=== PATIENT | female | born 2000 | race Caucasian/White ===

== ENCOUNTER 2021-02-06 16:39 | Emergency (ER) | payer SELFPAY ==
[~2021-02-06] VITALS: Ht 177.8 cm; Wt 63.5 kg
[~2021-02-06 16:39] MED LIST: TYLENOL
[2021-02-06 16:45] VITALS: BP 126/72
--- NOTE | 2021-02-06 16:50 | NUR ---
KIMBERLY. HANDED ON URINE CUP.
--- NOTE | 2021-02-06 17:19 | NUR ---
PATIENT AMBULATED TO BED 2.
--- NOTE | 2021-02-06 17:50 | NUR ---
20 Y/O FEMALE C/O EPIGASTRIC PAIN X TODAY AND C/O [place], LIGHTHEADED, DIZZINESS X 2 WEEKS. PT STATES CONSTANT 6/10 SHARP PAIN. WITH NAUSEA. DENIES VOMITING, DIARRHEA, CONSTIPATION. PT STATES SIMILAR SYMPTOMS WHEN SHE RECEIVED BLOOD TRANSFUSION 8 MONTHS AGO. PT REPORTS DISCOLORATION TO LT UPPER LEG. NO REDNESS OR SWELLING NOTED. MOTHER AT BEDSIDE. PMH: ANEMIA NKA
[2021-02-06 19:05] LABS: EOSINOPHILS # (AUTO) 0.4 K/uL (0-0.4); EOSINOPHILS % (AUTO) 8.3 % (0.0-4.0); HEMATOCRIT 27.3 % (36-48); HEMOGLOBIN 7.8 g/dL (12.0-16.0); LYMPHOCYTES # (AUTO) 0.9 K/uL (2.5-16.5); LYMPHOCYTES % (AUTO) 16.7 % (20.5-51.1); MEAN CORPUSCULAR HEMOGLOBIN 16 pg (27-31); MEAN CORPUSCULAR HGB CONC 29 g/dL (33-37); MEAN CORPUSCULAR VOLUME 56.9 fL (80-94); MONOCYTES # (AUTO) 1.6 K/uL (0.8-1.0); MONOCYTES % (AUTO) 30.6 % (1.7-9.3); NEUTROPHILS # (AUTO) 2.3 K/uL (1.8-7.7); NEUTROPHILS % (AUTO) 44.4 % (42.2-75.2); PLATELET COUNT (AUTO) 321 K/uL (140-450); RED CELL DISTRIBUTION WIDTH 19.7 % (11.6-13.7); WHITE BLOOD COUNT (AUTO) 5.3 K/uL (4.5-11.0)
--- NOTE | 2021-02-06 19:09 | NUR ---
REPORT GIVEN TO KIMBERLY CONCEPCION FOR CONTINUITY OF CARE
--- NOTE | 2021-02-06 19:12 | NUR ---
REPORT RECEIVED FROM CARLENE GAUTHIER FOR CONTINUITY OF CARE.
--- NOTE | 2021-02-06 19:22 | NUR ---
INTRODUCED SELF TO PATIENT. IV TO RAC IS PATENT. PATIENT PROVIDED BLANKET FOR COMFORT. FAMILY MEMBER NOTED AT BEDSIDE. PT RESTING IN BED WITH HOB ELEVATED.
[2021-02-06 19:25] LABS: ANION GAP 10.1 (8-16); CARBON DIOXIDE 27.3 mmol/L (21-32); CREATININE 0.6 mg/dL (0.6-1.3); POTASSIUM 3.4 mmol/L (3.5-5.1)
--- NOTE | 2021-02-06 19:56 | NUR ---
Patient discharged with v/s stable. Written and verbal after care instructions given and explained. Patient verbalized understanding. Ambulatory with steady gait. All questions addressed prior to discharge. Advised to follow up with PMD.
== END 2021-02-06 19:56 | disposition home or self-care (01) ==
LOC: MED 16:39
DX: R42 Dizziness and giddiness (principal); D64.9 Anemia, unspecified; Z79.899 Other long term (current) drug therapy
CPT/HCPCS: 36415; 80048; 85025; 99283